=== PATIENT | female | born 1965 | race American Indian/Alaskan Native ===

== ENCOUNTER 2021-04-22 14:04 | Emergency (ER) | payer BC ==
[2021-04-22 14:20] VITALS: BP 104/70
--- NOTE | 2021-04-22 15:10 | Event Note ---
ED Screening Note Date of service: 04/22/21 Time: 15:09 ED Screening Note: Patient complains of feeling dizzy, and having headache, blurred vision neck pain after ceiling tile fell on her head Thursday. She is not any antiplatelet or any anticoagulant medications. This initial assessment/diagnostic orders/clinical plan/treatment(s) is/are subject to change based on patients health status, clinical progression and re- assessment by fellow clinical providers in the ED. Further treatment and workup at subsequent clinical providers discretion. Patient/guardian urged not to elope from the ED as their condition may be serious if not clinically assessed and managed. Initial orders include: CT head and cervical spine
--- NOTE | 2021-04-22 16:16 | Cat Scan Report ---
CT CERVICAL SPINE: 04/22/2021 INDICATION / CLINICAL INFORMATION: neck pain/head injury. COMPARISON: None available. FINDINGS: CT images of the cervical spine were obtained. Images are evaluated in the axial, coronal, and sagitt al planes. Is no evidence of acute abnormality. There is right convex scoliosis centered at the cervicothoracic junction. Straightening of cervical lordosis is present in the sagittal plane with the patient posit ioned for this exam. There is no evidence of fracture or dislocation. LEVEL BY LEVEL ANALYSIS: . CRANIOCERVICAL JUNCTION: Unremarkable. PARASPINAL STRUCTURES: Unremarkable IMPRESSION: No acute abnormality. All CT scans at this location are performed using dose reduction to ALARA by means of automated expos ure control. Signer Name: Adán Kebede MD Signed: 04/22/2021 4:11 PM Workstation Name: [id number]
--- NOTE | 2021-04-22 16:18 | Cat Scan Report ---
CT BRAIN: 04/22/2021 INDICATION / CLINICAL INFORMATION: Head injury/dizzy/blurred vision. COMPARISON: None available. FINDINGS: BRAIN/INTRACRANIAL STRUCTURES: Unenhanced CT images of the brain demonstrate no evidence of acute int racranial abnormality. Ventricles and sulci are within normal limits of size and shape for a patient of this age. There is no CT evidence of ischemic injury, hemorrhage, or mass. There are no abnormal extra-axial fl uid collections. EXTRACRANIAL STRUCTURES: Unremarkable. IMPRESSION: No acute abnormality. All CT scans at this location are performed using dose reduction to ALARA by means of automated expos ure control. Signer Name: Adán Kebede MD Signed: 04/22/2021 4:13 PM Workstation Name: [id number]
--- NOTE | 2021-04-22 16:35 | Emergency Department Report ---
ED Head Trauma HPI - General Chief complaint: Head Injury Stated complaint: HEADACHE, NECK PAIN, BLURRIED VISION Time Seen by Provider: 04/22/21 16:31 Source: patient Mode of arrival: Ambulatory Limitations: No Limitations - History of Present Illness Initial comments: Patient is a 55-year-old female presents emergency room with complaints of a head injury that occurred 2 days ago. She states that 2 days ago a ceiling tile fell onto her head, she states that this caused her to fall to the floor. She states initially she felt dizzy but denies any loss of consciousness. She states her occasionally she has blurry vision, she states her vision is normal currently. She states that she also has some neck discomfort. She denies any vomiting, numbness, weakness, bowel or bladder incontinence, any other injury. She is ambulatory without difficulty. No past medical history. No allergies to medications. - Related Data Previous Rx's Medication Instructions Recorded Last Taken Type Butalb/Acetaminophen/Caffeine 1 cap PO Q8HR PRN #12 cap 04/22/21 Unknown Rx [Fioricet 50-300-40 mg CAP] methOCARBAMOL [Robaxin TAB] 500 mg PO BID PRN #14 tab 04/22/21 Unknown Rx Allergies/Adverse reactions: Allergies Allergy/AdvReac Type Severity Reaction Status Date / Time No Known Allergies Allergy Unverified 04/22/21 14:16 ED Review of Systems ROS: Stated complaint: HEADACHE, NECK PAIN, BLURRIED VISION Other details as noted in HPI Comment: All other systems reviewed and negative ED Past Medical Hx - Past Medical History Previous Medical History?: No - Surgical History Past Surgical History?: No - Medications Home Medications: Home Medications Medication Instructions Recorded Confirmed Last Taken Type Butalb/Acetaminophen/Caffeine 1 cap PO Q8HR PRN #12 cap 04/22/21 Unknown Rx [Fioricet 50-300-40 mg CAP] methOCARBAMOL [Robaxin TAB] 500 mg PO BID PRN #14 tab 04/22/21 Unknown Rx ED Physical Exam - General Limitations: No Limitations General appearance: alert, in no apparent distress - Head Head exam: Present: atraumatic, normocephalic, other (no skull or facial bony ttp, no crepitus, no deformity) - Eye Eye exam: Present: normal appearance, PERRL, EOMI. Absent: periorbital swelling, periorbital tenderness Pupils: Present: normal accommodation, other (no racoon eyes) - ENT ENT exam: Present: mucous membranes moist - Neck Neck exam: Present: normal inspection, tenderness (left sided C-spine paraspinal muscular ttp, no midline C-spine ttp, no step offs, no deformities ), full ROM. Absent: meningismus - Respiratory Respiratory exam: Present: normal lung sounds bilaterally. Absent: respiratory distress, wheezes, rales, rhonchi, stridor, chest wall tenderness, accessory muscle use, decreased breath sounds, prolonged expiratory - Cardiovascular Cardiovascular Exam: Present: regular rate, normal rhythm, normal heart sounds. Absent: systolic murmur, diastolic murmur, rubs, gallop - Back Exam Back exam: Present: normal inspection, full ROM. Absent: paraspinal tenderness, vertebral tenderness - Neurological Exam Neurological exam: Present: alert, oriented X3, CN II-XII intact, normal gait, other (normal finger to nose, normal heel to otero, 5/5 muscle strength in the BUE/BLE, sensation intact throughout, no pronator drift, no facial asymmetry). Absent: motor sensory deficit - Psychiatric Psychiatric exam: Present: normal affect, normal mood - Skin Skin exam: Present: warm, dry, intact ED Course Vital Signs 04/22/21 14:18 Temperature 98.2 F Pulse Rate 61 Respiratory 16 Rate Blood Pressure 104/70 [Right] O2 Sat by Pulse 99 Oximetry - Radiology Data Radiology results: report reviewed Ordering Physician: RAFAEL HUNTER Date of Service: 04/22/21 Procedure(s): CT head/brain wo con Accession Number(s): [id number] cc: RAFAEL HUNTER CT BRAIN: 04/22/2021 INDICATION / CLINICAL INFORMATION: Head injury/dizzy/blurred vision. COMPARISON: None available. FINDINGS: BRAIN/INTRACRANIAL STRUCTURES: Unenhanced CT images of the brain demonstrate no evidence of acute intracranial abnormality. Ventricles and sulci are within normal limits of size and shape for a patient of this age. There is no CT evidence of ischemic injury, hemorrhage, or mass. There are no abnormal extra-axial fluid collections. EXTRACRANIAL STRUCTURES: Unremarkable. IMPRESSION: No acute abnormality. All CT scans at this location are performed using dose reduction to ALARA by means of automated exposure control. Signer Name: Adán Kebede MD Signed: 04/22/2021 4:13 PM Workstation Name: [id number] Transcribed By: EUGENIO Dictated By: Adán Kebede MD Electronically Authenticated By: Adán Kebede MD Signed Date/Time: 04/22/211612 DD/ 10 TD/TT: Ordering Physician: RAFAEL HUNTER Date of Service: 04/22/21 Procedure(s): CT cervical spine wo con Accession Number(s): [id number] cc: RAFAEL HUNTER CT CERVICAL SPINE: 04/22/2021 INDICATION / CLINICAL INFORMATION: neck pain/head injury. COMPARISON: None available. FINDINGS: CT images of the cervical spine were obtained. Images are evaluated in the axial, coronal, and sagittal planes. Is no evidence of acute abnormality. There is right convex scoliosis centered at the cervicothoracic junction. Straightening of cervical lordosis is present in the sagittal plane with the patient positioned for this exam. There is no evidence of fracture or dislocation. LEVEL BY LEVEL ANALYSIS: . CRANIOCERVICAL JUNCTION: Unremarkable. PARASPINAL STRUCTURES: Unremarkable IMPRESSION: No acute abnormality. All CT scans at this location are performed using dose reduction to ALARA by means of automated exposure control. Signer Name: Adán Kebede MD Signed: 04/22/2021 4:11 PM Workstation Name: [id number] Transcribed By: EUGENIO Dictated By: Adán Kebede MD Electronically Authenticated By: Adán Kebede MD Signed Date/Time: 04/22/211610 DD/ 09 TD/TT: Print - Medical Decision Making Patient is a 55-year-old female presents emergency room with complaints of a head injury that occurred 2 days ago. She states that 2 days ago a ceiling tile fell onto her head, she states that this caused her to fall to the floor. She states initially she felt dizzy but denies any loss of consciousness. She states her occasionally she has blurry vision, she states her vision is normal currently. She states that she also has some neck discomfort. She denies any vomiting, numbness, weakness, bowel or bladder incontinence, any other injury. She is ambulatory without difficulty. No past medical history. No allergies to medications. Vitals are normal. On exam:left sided C-spine paraspinal muscular ttp, no midline C-spine ttp, no step offs, no deformities, no focal neuro deficits on exam, no skull or facial bony tenderness palpation, no deformities, no crepitus. CTs ordered prior to my examination. CT head and CT cervical spine No acute abnormality. Discussed all results with patient and answer questions. Patient given prescription for Fioricet and Robaxin. Advised patient please take medication as prescribed. do not drive or operate heavy machinery while taking muscle relaxer robaxin. follow up with a primary care doctor. return to the emergency room for any new or worsening symptoms. Critical care attestation.: If time is entered above; I have spent that time in minutes in the direct care of this critically ill patient, excluding procedure time. ED Disposition Clinical Impression: Neck pain Head injury Qualifiers: Encounter type: initial encounter Qualified Code(s): S09.90XA - Unspecified injury of head, initial encounter Disposition: TO HOME OR SELFCARE Is pt being admited?: No Does the pt Need Aspirin: No Condition: Stable Instructions: Head Injury, Adult, Muscle Strain, Iyar-ls-Iihk Additional Instructions: please take medication as prescribed. do not drive or operate heavy machinery while taking muscle relaxer robaxin. follow up with a primary care doctor. return to the emergency room for any new or worsening symptoms. Prescriptions: Butalb/Acetaminophen/Caffeine [Fioricet 50-300-40 mg CAP] 1 cap PO Q8HR PRN #12 cap PRN Reason: headache methOCARBAMOL [Robaxin TAB] 500 mg PO BID PRN #14 tab PRN Reason: muscle spasm/pain Referrals: GENNA ASNTIAGO MD [Staff Physician] - 2-3 Days SANDY ROMERO MD [Staff Physician] - 2-3 Days [facility] [Provider Group] - 2-3 Days Forms: Work/School Release Form(ED) Time of Disposition: 16:34 Print Language: IRISH
== END 2021-04-22 19:00 | disposition home or self-care (01) ==
LOC: ED 14:04
DX: S09.90XA Unspecified injury of head, initial encounter (principal); M54.2 Cervicalgia; Z79.899 Other long term (current) drug therapy; W20.8XXA Other cause of strike by thrown, projected or falling object, initial encounter; Y93.89 Activity, other specified; Y92.89 Other specified places as the place of occurrence of the external cause; Y99.8 Other external cause status
CPT/HCPCS: 70450; 72125

== ENCOUNTER 2021-05-20 19:37 | Emergency (ER) | payer BC ==
--- NOTE | 2021-05-20 20:52 | XRay Report ---
RIGHT FOOT, 3 VIEWS INDICATION / CLINICAL INFORMATION: Lower Extremity Injury. Patient slipped and twisted her right foot 2 weeks ago. COMPARISON: None available. FINDINGS: No fracture or dislocation. Alignment is normal. No significant soft tissue abnormality. IMPRESSION: No significant osseous abnormality. Signer Name: Cinthia Maier MD Signed: 05/20/2021 8:47 PM Workstation Name: [id number]
--- NOTE | 2021-05-21 | Emergency Department Report ---
ED Lower Extremity HPI - General Chief Complaint: Extremity Injury, Lower Stated Complaint: RT FOOT INJURY Time Seen by Provider: 05/20/21 22:43 Source: patient Mode of arrival: Ambulatory Limitations: No Limitations - History of Present Illness Initial Comments: This is a 55-year-old female nontoxic, well nourished in appearance, no acute signs of distress presents to the ED with c/o of right ankle pain 2 weeks. Patient stated that she twisted it 2 weeks ago. Patient denies any other injuries or trauma. Patient denies any numbness, tingling, fever, chills, nausea, vomiting, chest pain, shortness of breath, headache, stiff neck. Patient denies any joint swelling or joint redness. Patient denies decreased range of motion. Patient stated has decreased gait due to pain. Patient denies any allergies. MD Complaint: ankle injury -: week(s) Injury: Ankle: Left Type of Injury: inversion Place: street/outdoors Severity: mild Severity scale (0 -10): 8 Improves With: immobilization Worsens With: weight bearing, movement, palpation Associated Symptoms: swelling, able to partially bear weight. denies: snap/pop sensation, numbness, tingling, unable to bear weight - Related Data Previous Rx's Medication Instructions Recorded Last Taken Type Butalb/Acetaminophen/Caffeine 1 cap PO Q8HR PRN #12 cap 04/22/21 Unknown Rx [Fioricet 50-300-40 mg CAP] methOCARBAMOL [Robaxin TAB] 500 mg PO BID PRN #14 tab 04/22/21 Unknown Rx Naproxen 500 mg PO Q12H PRN #12 tablet 05/21/21 Unknown Rx Allergies Allergy/AdvReac Type Severity Reaction Status Date / Time No Known Allergies Allergy Unverified 04/22/21 14:16 ED Review of Systems ROS: Stated complaint: RT FOOT INJURY Other details as noted in HPI Comment: All other systems reviewed and negative Constitutional: denies: chills, fever Eyes: denies: eye pain, eye discharge, vision change ENT: denies: ear pain, throat pain Respiratory: denies: cough, shortness of breath, wheezing Cardiovascular: denies: chest pain, palpitations Endocrine: no symptoms reported Gastrointestinal: denies: abdominal pain, nausea, diarrhea Genitourinary: denies: urgency, dysuria, discharge Musculoskeletal: denies: back pain, joint swelling, arthralgia Skin: denies: rash, lesions Neurological: denies: headache, weakness, paresthesias Psychiatric: denies: anxiety, depression Hematological/Lymphatic: denies: easy bleeding, easy bruising ED Past Medical Hx - Past Medical History Previous Medical History?: No - Surgical History Past Surgical History?: No - Medications Home Medications: Home Medications Medication Instructions Recorded Confirmed Last Taken Type Butalb/Acetaminophen/Caffeine 1 cap PO Q8HR PRN #12 cap 04/22/21 Unknown Rx [Fioricet 50-300-40 mg CAP] methOCARBAMOL [Robaxin TAB] 500 mg PO BID PRN #14 tab 04/22/21 Unknown Rx Naproxen 500 mg PO Q12H PRN #12 tablet 05/21/21 Unknown Rx ED Physical Exam - General Limitations: No Limitations General appearance: alert, in no apparent distress - Head Head exam: Present: atraumatic, normocephalic - Eye Eye exam: Present: normal appearance - Neck Neck exam: Present: normal inspection, full ROM. Absent: lymphadenopathy - Respiratory Respiratory exam: Absent: respiratory distress - Cardiovascular Cardiovascular Exam: Present: regular rate - Extremities Exam Extremities exam: Present: full ROM, tenderness, normal capillary refill, other (Negative Damon test). Absent: pedal edema, joint swelling, calf tenderness - Expanded Lower Extremity Exam Right Hip exam: Present: normal inspection, full ROM. Absent: tenderness, swelling Upper Leg exam: Present: normal inspection, full ROM. Absent: tenderness, swelling Knee exam: Present: normal inspection, full ROM. Absent: tenderness, swelling Lower Leg exam: Present: normal inspection, full ROM. Absent: tenderness, swelling Ankle exam: Present: full ROM, tenderness, swelling, ecchymosis. Absent: abras ion, laceration, deformity, crepidus, dislocation, erythema, anterior draw sign Foot/Toe exam: Present: normal inspection, full ROM, tenderness, swelling. Absent: abrasion, laceration, ecchymosis, deformity, crepidus, dislocation, erythema, amputation, puncture wound, foreign body, calcaneal tenderness, tenderness at base of 5th metatarsal, nail avulsion, subungual hematoma Neuro vascular tendon exam: Present: no vascular compromise Gait: Positive: observed and limited by pain 1 - pain and swelling here - Back Exam Back exam: Present: normal inspection, full ROM. Absent: tenderness, CVA tenderness (R), CVA tenderness (L), muscle spasm, paraspinal tenderness, v ertebral tenderness, rash noted - Neurological Exam Neurological exam: Present: alert, oriented X3 - Psychiatric Psychiatric exam: Present: normal affect, normal mood - Skin Skin exam: Present: warm, dry, intact, normal color. Absent: rash ED Course Vital Signs 05/20/21 20:07 Temperature 98.5 F Pulse Rate 58 L Respiratory 18 Rate Blood Pressure 136/73 O2 Sat by Pulse 100 Oximetry - Reevaluation(s) Reevaluation #1: 05/21/21 00:01 Patient is speaking in full sentences with no signs of distress noted. ED Lower Extremity MDM - Radiology Data [address] [address] XRay Report Signed Patient: MACY GOMES MR#: [id number] : 1965 Acct:[id number] Age/Sex: 55 / F ADM Date: 05/20/21 Loc: ED Attending Dr: Ordering Physician: NYDIA TENORIO MD Date of Service: 05/20/21 Procedure(s): XR foot 3+V RT Accession Number(s): [id number] cc: ED MD COBY Fluoro Time In Minutes: RIGHT FOOT, 3 VIEWS INDICATION / CLINICAL INFORMATION: Lower Extremity Injury. Patient slipped and twisted her right foot 2 weeks ago. COMPARISON: None available. FINDINGS: No fracture or dislocation. Alignment is normal. No significant soft tissue abnormality. IMPRESSION: No significant osseous abnormality. Signer Name: Cinthia Maier MD Signed: 05/20/2021 8:47 PM Workstation Name: [id number] Transcribed By: JR Dictated By: Cinthia Maier MD Electronically Authenticated By: Cinthia Maier MD Signed Date/Time: 05/20/212046 DD/ 45 TD/TT: [address] [address] XRay Report Signed Patient: MACY GOMES MR#: [id number] : 1965 Acct:[id number] Age/Sex: 55 / F ADM Date: 05/20/21 Loc: ED Attending Dr: Ordering Physician: POOL FINLEY NP Date of Service: 05/20/21 Procedure(s): XR ankle 3+V RT Accession Number(s): [id number] cc: POOL FINLEY NP Fluoro Time In Minutes: RIGHT ANKLE 3 VIEW(S) INDICATION / CLINICAL INFORMATION: ankle pain and swelling COMPARISON: None available. FINDINGS: BONES / JOINT(S): No acute fracture or subluxation. No significant arthritis. SOFT TISSUES: There is soft tissue swelling over the lateral malleolus. ADDITIONAL FINDINGS: None. Signer Name: Jose Newton MD Signed: 05/21/2021 12:21 AM Workstation Name: [id number] Transcribed By: Dictated By: Jose Newton MD Electronically Authenticated By: Jose Newton MD Signed Date/Time: 05/21/2120 DD/ TD/TT: - Medical Decision Making This is a 55-year-old female that presents with left ankle/foot sprain. Patient is stable and was examined by me. I referred patient to an orthopedic doctor for further evaluation for possible MRI. X-ray has been obtained and dictated by the radiologist. Patient is notified of the x-ray report with noted by the patient. Patient does have normal gait with some tenderness and no joint swelling. No ecchymosis. no joint redness or swelling. Not warm to touch. No signs of cellulites present. Patient received ankle stirrup and crutches and was educated by RN how to use crutches. Patient was instructed to RICE therapy. Patient is discharged with naproxen. At time of discharge, the patient does not seem toxic or ill in appearance. No acute signs of distress noted. Patient agrees to discharge treatment plan of care. No further questions noted by the patient. Critical care attestation.: If time is entered above; I have spent that time in minutes in the direct care of this critically ill patient, excluding procedure time. ED Disposition Clinical Impression: Left ankle sprain Qualifiers: Encounter type: initial encounter Involved ligament of ankle: unspecified ligament Qualified Code(s): S93.402A - Sprain of unspecified ligament of left ankle, initial encounter Sprain of left foot Qualifiers: Encounter type: initial encounter Qualified Code(s): S93.602A - Unspecified sprain of left foot, initial encounter Disposition: TO HOME OR SELFCARE Is pt being admited?: No Does the pt Need Aspirin: No Condition: Stable Instructions: Crutch Use, Adult, [id number], RICE Therapy for Routine Care of Injuries, Newa-oh-Vkoj, Ankle Sprain, Dzaf-yn-Qyma, Crutch Use, Adult Additional Instructions: Follow-up with a orthopedic doctor in 3-5 days or if symptoms worsen and continu e return to emergency room as soon as possible. No physical activity that extremity until cleared by orthopedic doctor Prescriptions: Naproxen 500 mg PO Q12H PRN #12 tablet PRN Reason: Pain , Severe (7-10) Referrals: PRIMARY MD SHAUN [Primary Care Provider] - 3-5 Days DARCY GARCIA MD [Staff Physician] - 3-5 Days Forms: Work/School Release Form(ED) Time of Disposition: 00:53
--- NOTE | 2021-05-21 00:25 | XRay Report ---
RIGHT ANKLE 3 VIEW(S) INDICATION / CLINICAL INFORMATION: ankle pain and swelling COMPARISON: None available. FINDINGS: BONES / JOINT(S): No acute fracture or subluxation. No significant arthritis. SOFT TISSUES: There is soft tissue swelling over the lateral malleolus. ADDITIONAL FINDINGS: None. Signer Name: Joes Newton MD Signed: 05/21/2021 12:21 AM Workstation Name: [id number]
[2021-05-21 02:39] VITALS: BP 142/76
== END 2021-05-21 01:30 | disposition home or self-care (01) ==
LOC: ED 19:37
DX: S93.402A Sprain of unspecified ligament of left ankle, initial encounter (principal); S93.602A Unspecified sprain of left foot, initial encounter; Z79.899 Other long term (current) drug therapy; X50.1XXA Overexertion from prolonged static or awkward postures, initial encounter; Y93.89 Activity, other specified; Y92.89 Other specified places as the place of occurrence of the external cause; Y99.8 Other external cause status
CPT/HCPCS: 99283

== ENCOUNTER 2022-01-24 16:50 | Emergency (ER) | payer BC ==
[2022-01-25] MEDS ORDERED: TETANUS,DIPH,PERTUSS(ACELL) VACCINE 0.5 ML SYRINGE IM ONE (01:21)
[2022-01-25] MEDS ORDERED: HYDROcodone/ACETAMINOPHEN 5-325 MG TAB PO ONE (01:21)
[2022-01-25] MEDS ORDERED: IBUPROFEN 600 MG TAB PO ONE (01:21)
[2022-01-25] MEDS ORDERED: ONDANSETRON 4 MG ODT TAB PO ONE (01:22)
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
[2022-01-25 02:41] VITALS: BP 145/90
== END 2022-01-25 02:41 | disposition home or self-care (01) ==
LOC: ED 16:50
DX: T23.201A Burn of second degree of right hand, unspecified site, initial encounter (principal); X08.8XXA Exposure to other specified smoke, fire and flames, initial encounter; Y93.89 Activity, other specified; Y92.89 Other specified places as the place of occurrence of the external cause; Y99.8 Other external cause status
CPT/HCPCS: 90471; 90715; 99282; 99283; J3490; Q0162